=== PATIENT | female | born 1980 | race Caucasian/White ===

== ENCOUNTER → 2021-04-29 | Outpatient (CLI) | payer BC ==
--- NOTE | 2021-05-02 14:36 | Diagnostic Imaging Report ---
INDICATION: Routine screening. No prior mammograms are available for comparison. 2-D and 3-D bilateral screening mammography was performed with CAD. Scattered fibroglandular densities are identified bilaterally. A circumscribed nodule in the inferior right breast approximate 5 cm from the nipple is noted. No other masses are identified. No malignant-appearing microcalcifications are seen. Axillae are unremarkable. IMPRESSION: BI-RADS Category 0 Circumscribed nodule inferior right breast 5 cm from the nipple. Further evaluation with ultrasound is recommended. ACR BI-RADS Category 0: Incomplete. (Needs additional imaging evaluation). Result letter will be mailed to the patient. Note: At least 10% of breast cancer is not imaged by mammography. Dictated by: Dictated on workstation # [id number]
== END ==
LOC: RAD 15:30
PROVIDERS: ATTEND Nurse Practitioner Family
DX: Z12.31 Encounter for screening mammogram for malignant neoplasm of breast (principal); Z12.4 Encounter for screening for malignant neoplasm of cervix; N63.10 Unspecified lump in the right breast, unspecified quadrant
CPT/HCPCS: 77063; 77067

== ENCOUNTER 2021-07-28 05:41 | Outpatient (CLI) | payer BC ==
[~2021-07-28] VITALS: Ht 170.2 cm; Wt 105.8 kg
[2021-07-29] MEDS ORDERED: ASCO-262 PO (09:01)
[2021-07-29] MEDS ORDERED: ZINC50TA11 PO (09:01)
[2021-07-29] MEDS ORDERED: MULT-1136 PO (09:01)
[2021-07-29] MEDS ORDERED: AMOX500T2 PO (09:01)
[2021-07-29] MEDS ORDERED: FLUT9.9S NS (09:01)
[2021-07-29] MEDS ORDERED: BUDE10.7 IH (09:01)
== END 2021-07-29 09:10 | disposition home or self-care (01) ==
LOC: PREOP 05:41
PROVIDERS: ATTEND Obstetrics & Gynecology
DX: Z01.818 Encounter for other preprocedural examination (principal)

== ENCOUNTER 2021-08-02 07:41 | Day surgery (SDC) | payer BC ==
[2021-08-02] VITALS (10 sets, daily range): BP systolic 110–138; BP diastolic 65–82
[~2021-08-02] VITALS: Ht 170 cm; Wt 105.8 kg
[~2021-08-02 07:41] MED LIST: AMOX500T2 PO; ASCO-262 PO; BUDE10.7 IH; FLUT9.9S NS; MULT-1136 PO; ZINC50TA11 PO
[2021-08-02] MEDS ORDERED: LIDOCAINE/EPI 1%-1:100,000 (XYLOCAINE) 20ML ONE (08:11)
[2021-08-02] MEDS ORDERED: proPOfol 200 MG/20 ML (DIPRIVAN) VIAL IV ONE (08:17)
[2021-08-02] MEDS ORDERED: fentaNYL INJ 100 MCG/2 ML AMP ONE (08:17)
[2021-08-02] MEDS ORDERED: MIDAZOLAM 2 MG/2 ML (VERSED) VIAL ONE (08:17)
[2021-08-02] MEDS ORDERED: ONDANSETRON 4 MG/2 ML (SDV) Z0FRAN ONE (08:17)
[2021-08-02] MEDS ORDERED: LIDOCAINE PF 2% 5 ML (XYLOCAINE) VIAL ONE (08:17)
[2021-08-02] MEDS ORDERED: SEVOFLURANE (ULTANE) 15 ML INHAL SOLN ONE (08:17)
[2021-08-02] MEDS ORDERED: LACTATED RINGERS 1,000 ML IV PRN (08:30)
--- NOTE | 2021-08-02 08:37 | Progress Note-Pre Operative ---
Pre-Operative Progress Note H&P Reviewed The H&P was reviewed, patient examined and no changes noted. Date Seen by Provider: Aug 02, 2021 Time Seen by Provider: 08:35 Date H&P Reviewed: Aug 02, 2021 Time H&P Reviewed: 08:35 Pre-Operative Diagnosis: labial hypertrophy SHMUEL LENTZ DO Aug 02, 2021 08:37
--- NOTE | 2021-08-02 08:38 | Discharge Inst-Women's Service ---
Discharge Inst-Women's Serv Depart Medication/Instructions New, Converted or Re-Newed RX: Transmitted to Pharmacy Instructions Keep the vulva clean and dry. Do not wash the biopsy area for 12 hours. Apply estrace cream twice daily to keep it otherwise moist (not wet). Apply direct pressure on the biopsy site if bleeding occurs. May be helpful to wear spanx or tight underwear to keep pressure. Take a shower 24 hours after the biopsy. May use pericare bottle after urinating to clean, rather than wipe with tissue. Avoid hot bathtubs until healing is complete. Wash the area once or twice daily and pat it dry. Then apply the estrace cream. Avoid sexual intercourse until the area has healed completely. Dermoplast spray as needed for pain. Lidocaine gel can be used as well. Use an ice pack for at least 24 hours after surgery and then as needed. Final Diagnosis labial asymmetry, hypertrophy Consults/Follow Up Additional Follow Up: Yes (10-14 days) Activity Activity: Activity as Tolerated (rest and limited activity for 24-48 hours, then may increase activity slowly) Driving Instructions: No Driving for 24 Hours NO SMOKING: NO SMOKING Nothing Inside Vagina: No Douching, No [place] (until healed), No Tampons Diet Discharge Diet: No Restrictions Symptoms to Report to : Bleeding Excessive, Pain Increased, Fever Over 101 Degrees F, Vaginal Bleeding Increase, Cramps in Feet or Legs, Vaginal Discharge Foul For Any Problems or Questions: Contact Your Physician Skin/Wound Care Bathing Instructions: SHMUEL Almanza DO Aug 02, 2021 08:38
[2021-08-02] MEDS ORDERED: FLU QUADRIvalent (3YOA+) 60 mcg/0.5 ml 2021-22(AFLURIA) IM ONE (08:45)
[2021-08-02] MEDS ORDERED: ESTRADIOL VAGINAL CREAM 42.5 GM (ESTRACE) VG ONE (09:37)
--- NOTE | 2021-08-02 09:47 | Operative Report ---
Operative Report Date of Procedure/Surgery Aug 02, 2021 Surgeon (s) SHMUEL LENTZ DO Byproducts Pump Operator (s): NA Post-Operative Diagnosis labial hypertrophy and assymetry Procedure Performed bilateral labiaplasty/reduction/partial vulvectomy Description of Procedure Anesthesia Type: General (LMA) Estimated blood loss (mL): minimal Specimen(s) collected/removed labial bilateral Description of the Procedure with informed consent the patient was taken to the operating room where general anesthesia was found to be adequate. She was then prepped and draped in the usual sterile fashion in the dorsolithotoy position. The bladder was drained of clear yellow urine. I injected the labia bilaterally with lidocaine with epinephrine and the marked the excision site. I excised the excess tissue from both labia in a wedge fashion, making them more equal and closed the skin with 4-0 Monocryl in an interrupted fashion. I then placed dermabond over the excision sites, There was minimal bleeding. The patient was awakened and taken to recovery in stable condition. Sponge, instrument and needle counts were correct times two. Findings of the Procedure left labia long and distorted with evidence of irritation and rubbing right labia wnl Allergies and Home Medications Allergies Coded Allergies: No Known Drug Allergies (Unverified , 08/02/21) Patient Home Medication List Home Medication List Reviewed: Yes Amoxicillin (Amoxicillin) Unknown Strength Tablet, Unknown Dose PO BID, (Reported) Entered as Reported by: ELPIDIO GREWAL on 07/29/21900 Last Action: Last Taken Edited Ascorbate Calcium (Vitamin C) 500 Mg Tablet, 500 MG PO DAILY, (Reported) Entered as Reported by: ELPIDIO GREWAL on 07/29/21900 Last Action: Last Taken Edited Budesonide/Glycopyr/Formoterol (Breztri Aerosphere Inhaler) 10.7 Gm Hfa.aer.ad, 2 PUFF IH BID, (Reported) Entered as Reported by: ELPIDIO GREWAL on 07/29/21900 Last Action: Last Taken Edited Fluticasone Propionate (Flonase Allergy Relief) 9.9 Ml Jensen.susp, 2 SPRAY NS DAILY, (Reported) Entered as Reported by: ELPIDIO GREWAL on 07/29/21900 Last Action: Last Taken Edited Multivitamin (Multivitamin) 1 Each Tablet, 1 EACH PO DAILY, (Reported) Entered as Reported by: ELPIDIO GREWAL on 07/29/21900 Last Action: Last Taken Edited Zinc Gluconate (Zinc) 50 Mg Tablet, 50 MG PO DAILY, (Reported) Entered as Reported by: ELPIDIO GREWAL on 07/29/21900 Last Action: Last Taken Edited SHMUEL LENTZ DO Aug 02, 2021 09:47
[2021-08-02] MEDS ORDERED: KETOROLAC 30 MG/ML VIAL IVP ONE (10:00)
--- NOTE | 2021-08-02 11:31 | Anesthesia-General Post-Op ---
General Patient Condition Mental Status/LOC: Same as Preop Cardiovascular: Satisfactory Nausea/Vomiting: Absent Respiratory: Satisfactory Pain: Controlled Complications: Absent Post Op Complications Complications None Follow Up Care/Instructions Patient Instructions None needed. Anesthesia/Patient Condition Patient Condition Patient is doing well, no complaints, stable vital signs, no apparent adverse anesthesia problems. No complications reported per nursing. HERIBERTO REAGAN CRNA Aug 02, 2021 11:31
== END 2021-08-02 11:50 | disposition home or self-care (01) ==
LOC: SDC 07:41
PROVIDERS: ATTEND Obstetrics & Gynecology
DX: N90.60 Unspecified hypertrophy of vulva (principal); N90.89 Other specified noninflammatory disorders of vulva and perineum; Z79.899 Other long term (current) drug therapy; Z87.891 Personal history of nicotine dependence; Z90.89 Acquired absence of other organs; Z80.3 Family history of malignant neoplasm of breast; Z80.0 Family history of malignant neoplasm of digestive organs; Z83.3 Family history of diabetes mellitus
CPT/HCPCS: 84703; 87081; 88304